=== PATIENT | female | born 1945 | race Caucasian/White ===

== ENCOUNTER 2020-08-12 11:04 | Inpatient (IN) | payer MEDICARE, BC ==
[2020-08-12 12:04] LABS: #Basophils 0.1 thou/uL (0.0-0.2); #Eosinphils 0.1 thou/uL (0.0-0.7); #Lymphocytes 2.4 thou/uL (1.20-3.40); #Monocytes 0.6 thou/uL (0.11-0.59); #Neutrophils 6.4 thou/uL (1.40-6.50); %Basophils 1.5 % (0.0-1.0); %Eosinophils 0.9 % (0.0-10.0); %Lymphocytes 25.2 % (21.0-51.0); %Monocytes 6.6 % (0.0-10.0); %Neutrophils 65.8 % (42.0-75.0); Hemoglobin 11.6 g/dL (12.0-16.0); Mean Corpuscular HGB CONC 34.4 g/dL (32.0-36.0); Mean Corpuscular Hemoglobin 33.2 pg (27.0-31.0); Mean Corpuscular Volume 96.5 fL (78.0-98.0); Mean Platelet Volume 7.3 fL (7.4-10.4); Platelet Count 234 thou/uL (130-400); RBC Distribution Width 11.7 % (11.5-14.5); Red Blood Cell (RBC) Count 3.51 mill/uL (4.20-5.40); White Blood Cell (WBC) Count 9.7 thou/uL (4.8-10.8)
[2020-08-12 12:33] LABS: ALT (SGPT) 15 U/L (8-55); AST (SGOT) 22 U/L (5-34); Albumin 3.9 g/dL (3.4-4.8); Alkaline Phosphatase 72 U/L (40-110); Anion Gap 16 mmol/L (10-20); BUN (Urea Nitrogen) 19 mg/dL (9.8-20.1); Bilirubin, Total 0.5 mg/dL (0.2-1.2); Calc. Creatinine Clearance 0 mL/min (70-130); Calcium 8.8 mg/dL (7.8-10.44); Carbon Dioxide 22 mmol/L (23-31); Chloride 103 mmol/L (98-107); Glucose 115 mg/dL (83-110); Potassium 4.2 mmol/L (3.5-5.1); Protein, Total 6.9 g/dL (6.0-8.3); Sodium 137 mmol/L (136-145)
--- NOTE | 2020-08-12 12:39 | ULT ---
US Gallbladder RUQ History: Epigastric pain Comparison: None. Findings: Real-time grayscale and color evaluation right upper quadrant of the abdomen was performed. Visualized portion aorta, IVC and pancreas unremarkable. Hepatic echotexture is normal. No mass. Liver measures 12.3 cm in length. Portal vein is patent with antegrade flow. Gallbladder is distended without wall thickening or pericholecystic fluid. No cholelithiasis. The right kidney measures 8.1 x 4.3 x 4.1 cm without mass, hydronephrosis or abnormal calcifications. Sonography Denis sign is negative. Common bile duct is normal measuring less than 3 mm. Impression: Distended gallbladder without cholelithiasis or cholecystitis.
[2020-08-12 12:46] LABS: Lipase 1566 U/L (8-78)
[2020-08-12] MEDS ORDERED: Morphine 4 MG/ML VIAL ONE ×2 (12:57→15:06)
[2020-08-12] MEDS ORDERED: Ondansetron PF 4 MG/2 ML Vial ONE ×2 (12:57→15:16)
--- NOTE | 2020-08-12 15:56 | HP ---
PRIMARY CARE PHYSICIAN: Dr. Navdeep Pike. CHIEF COMPLAINT: Abdominal pain and presyncopal episode. HISTORY OF PRESENT ILLNESS: This is a 74-year-old white female with a past medical history only significant for high blood pressure well controlled with a small dose of lisinopril. She reports that about a month ago, she started having some intermittent midepigastric burning pain. She thought it was reflux and then this morning, she had a breakfast supplement type shake and then went shopping. While she was at the store, she had onset of severe midepigastric burning pain and then, she started to get a little bit nauseated and very, very lightheaded and dizzy like she was going to pass out. She did have to sit down in the store and then eventually came into the emergency room. In the ER, she was found to have a very tender mid epigastric region. Her vital signs were stable. She was given Zofran, morphine, and a liter of fluid and is not feeling lightheaded at all right now when she lays down. When she sits up, she still feels a little lightheaded. The patient had a lab tests, which revealed elevated lipase of 1500. The rest for her liver tests were normal and she had normal white cell count. She did have an ultrasound done in the emergency room, which showed a dilated gallbladder, but no dilation of the ducts and no evidence of stones or infection. REVIEW OF SYSTEMS: CONSTITUTIONAL: No fevers. No chills. No significant weight changes. EYES: No double vision or blurred vision. ENT: She has chronic nasal congestion from allergies, no changes. No sore throat. CARDIOVASCULAR: No chest pain. No palpitations or racing heart. PULMONARY: No coughing, wheezing, or shortness of breath. GASTROINTESTINAL: See HPI. No vomiting. No diarrhea or constipation. GENITOURINARY: No dysuria or hematuria. MUSCULOSKELETAL: No muscle aches or joint pain. SKIN: No rashes or lesions noted. NEUROLOGIC: No numbness, tingling, or focal weakness. PAST MEDICAL HISTORY: Hypertension. PAST SURGICAL HISTORY: 1. Partial hysterectomy. 2. Bladder lift. SOCIAL HISTORY: No tobacco, alcohol, or illicit drug use. She is . She is a full code. Should she be incapacitated, her would be her medical decision maker, his name is Mahendra Vegas. The patient also has two daughters, they work at [employer] as nurses, one in pediatrics and one in the day stay. FAMILY HISTORY: Father had pancreatic cancer. ALLERGIES: NO KNOWN DRUG ALLERGIES. CURRENT MEDICATIONS: 1. Lisinopril, unknown dose daily. 2. Estrogen daily. 3. Ginkgo biloba supplement and other [id number]-vjavjpd supplements. No new medications. PHYSICAL EXAMINATION: VITAL SIGNS: Blood pressure 135/66, pulse 94, respirations 18, temperature 98.2, and O2 saturation 99% on room air. GENERAL: This is a well-developed, elderly white female, in no acute distress. Does not appear to be in any acute pain at this time. HEENT: Pupils equal, round, and reactive to light. Oropharynx clear without lesions, erythema, or exudate. NECK: Supple. No lymphadenopathy. No thyroid nodules or enlargement. No JVD. HEART: Regular rate and rhythm. No murmurs, rubs, or gallops. LUNGS: Clear to auscultation bilaterally. No wheezes, crackles, or rhonchi. ABDOMEN: Soft, mildly tenderness to palpation in the midepigastric region. She stated it was very tender previously before the morphine was given. No guarding or rebound tenderness. No hepatosplenomegaly or other masses. She does have normoactive bowel sounds. EXTREMITIES: No clubbing, cyanosis, or edema. SKIN: No rashes or other lesions noted. NEUROLOGIC: The patient moves all extremities equally. No facial droop. PSYCHIATRIC: Alert and orient x3. Normal mood and affect. LABORATORY DATA: CBC with hemoglobin of 11.6, hematocrit of 33.9 with a normal MCV, the rest is normal. Complete metabolic panel is notable for carbon dioxide of 22 and glucose of 115, the rest was normal. Lipase was elevated at 1566. Troponin was negative x1. We do not yet have a lactic acid. Abdominal ultrasound shows normal liver, normal bile ducts, normal size common bile duct, normal kidney, just distended gallbladder without cholelithiasis or cholecystitis. ASSESSMENT AND PLAN: 1. Acute pancreatitis of uncertain etiology. It is possible the patient had a small stone that she passed without any other gallstones. However, given her family history of pancreatic cancer and her symptoms starting to present slowly over a month, I am suspicious of the possibility of her having cancer as well. I did talk to Dr. Orlando and he will evaluate the patient. He recommended avoiding CT scan at this point, though we can get imaging later should it be necessary. For right now, we will hydrate aggressively. We will continue her on 150 mL of normal saline per hour done in the emergency room when she gets the floor . We will convert to a D5 half-normal saline at 100 mL/h and one can check orthostatic vital signs and lactic acid to make sure she does not need further bolusing of fluids. Her vital signs are stable right now. She has no elevated white count and no liver function test abnormalities. She may end up needing an endoscopic ultrasound of her pancreas or other imaging to evaluate for further for etiology. We will defer to Dr. Orlando for decisions on those for now. We will keep the patient n.p.o. and give Zofran and morphine IV as needed for pain and nausea. Can reassess the lipase in the morning and her symptoms to see if she might be able to start taking some clear fluids. 2. Hypertension, currently well controlled. We will hold lisinopril for now one the patient is well resuscitated. If her blood pressure is elevated, we can resume the lisinopril at that time. 3. Deep venous thrombosis prophylaxis, put the patient on Lovenox subcu and DVT and SCDs while in bed. 4. Gastrointestinal prophylaxis. The patient on Pepcid twice a day. 5. Code status. The patient is a full code. Should she be incapacitated, her Mahendra Vegas will be her medical decision. Job ID: [id number]
[2020-08-12] MEDS ORDERED: Acetaminophen 325 MG TAB PO PRN (17:00)
[2020-08-12] MEDS ORDERED: Guaifenesin DM 100-10/5 ML UDCUP PO PRN (17:00)
[2020-08-12] MEDS ORDERED: Senokot S 8.6-50 MG TAB PO PRN (17:00)
[2020-08-12] MEDS ORDERED: Acetaminophen 650 MG Suppository PR PRN (17:00)
[2020-08-12] MEDS ORDERED: Ondansetron ODT 4 MG TAB PO PRN (17:00)
[2020-08-12] MEDS ORDERED: HYDROcodone/Acetaminophen 5/325 mg Tablet PO PRN ×2 (17:00)
[2020-08-12] MEDS ORDERED: Dextrose 5 %-0.45 % NaCl 1,000 ML IV SCH (19:45)
[2020-08-12] MEDS: Ondansetron PF 4 MG/2 ML Vial IVP PRN (19:55)
[2020-08-12] MEDS ORDERED: Famotidine/PF 20 mg/2ml Vial SLOW IVP SCH (21:00)
[2020-08-12] MEDS: Dextrose 5 %-0.45 % NaCl 1,000 ML IV SCH (21:50)
[2020-08-12] MEDS: Lisinopril 5 MG TAB PO SCH (21:51)
[2020-08-13] MEDS: Morphine 4 MG/ML VIAL SLOW IVP PRN ×2 (00:25→20:01)
--- NOTE | 2020-08-13 02:51 | CON ---
DATE OF CONSULTATION: 08/12/2020 REASON FOR CONSULTATION: Pancreatitis. HISTORY OF PRESENT ILLNESS: Ms. Vegas is a 74-year-old female who sees Dr. Navdeep Pike in the outpatient setting. She was in her normal state of health when actually felt good this morning, she woke up and went to [employer]. About 10:30 while she was there, she started having some discomfort in her epigastrium like indigestion, but this kept getting worse, then she felt like she was going to pass out, became somewhat nauseated. They summoned EMS. She was noted to have an elevated lipase over 1000. Normal CBC except for mild anemia and normal liver function tests. Ultrasound did show distended gallbladder. Her renal function was normal. Presently, after receiving some IV fluids, she is feeling a little bit better. In the emergency room, she received Zofran, morphine, a liter bolus and 150 mL of normal saline. It is unclear what her bolus was on the floor here. PAST MEDICAL HISTORY: 1. She has little bit reflux for which she takes [id number] Prilosec. 2. Hypertension for which she is taking lisinopril for several years. PAST SURGICAL HISTORY: Notable for a partial hysterectomy and bladder lift. She has not had a previous colonoscopy. REVIEW OF SYSTEMS: Negative for dysphagia, odynophagia, melena, hematochezia, fever, shortness of breath, dyspnea on exertion, weight loss, anorexia or early satiety, change in bowel function, rashes, myalgias, arthralgias, or diabetes. SOCIAL HISTORY: Denies alcohol drugs, or tobacco. She is . FAMILY HISTORY: Father had pancreatic cancer in his late 60s. ALLERGIES: NONE KNOWN. MEDICATIONS: 1. Lisinopril .. 2. Estrogen. 3. Ginkgo biloba [id number] and supplement with a hospitalist notes, but she denied that to me. 4. She takes Prilosec sometimes too. PHYSICAL EXAMINATION: VITAL SIGNS: Temperature is 98. Pulse 115, it was at admission at 1600. Blood pressure 136/64, respirations 16. GENERAL: She is resting in bed. She is in no distress. HEENT: Oropharynx is moist. She is nonicteric. NECK: Supple without nodes. There is no supraclavicular adenopathy. LUNGS: Clear. HEART: Regular rate and rhythm without clicks or murmurs. ABDOMEN: Soft. Mild tender in epigastrium. No rebound or guarding. EXTREMITIES: No clubbing, cyanosis, or edema. LABORATORY DATA: White count was 9.7, admission hemoglobin 11.6, platelet count 234. Sodium 137, potassium 4.2, BUN and creatinine are 19 and 0.6, glucose 115, bilirubin 0.5, AST and ALT are 22 and 15, alkaline phosphatase 72. Troponin less than 0.01. Lipase was 1566. Triglycerides are 255. Lactic acid is 1.6. IMAGING: Ultrasound just revealed a distended gallbladder. ASSESSMENT: New onset pancreatitis of unclear etiology. She did take NSAIDs up until about a month ago, ulcer disease be considered, but you know she has not had any signs of bleeding. She has been taking H2 blockers at home. Gallbladder source to be considered, she had a distended gallbladder. If there is no evidence of gallstones and she has normal liver function test, we should go and get the biliary pancreatitis. I am going to ask her and get about supplements that she was taking, ginkgo biloba is one of the supplement, sometimes those can cause pancreatitis, pancreatic malignancy, she is concerned about her family history, but she has no history of recent abdominal pain. This is very abrupt onset. Differential diagnosis includes acute pancreatitis, ulcer disease, pancreatic neoplasia is less likely. Etiologies would be idiopathic, medication supplements, or possibly her JOSE RAMON inhibitor, or it would be unlikely several years after starting it getting angioedema of the pancreas that would still be possible. RECOMMENDATIONS: Would increase IV fluids to 150 mL an hour. Recheck all labs in the morning. CT scan abdomen in the morning. Job ID: [id number]
[2020-08-13] MEDS: Dextrose 5 %-0.45 % NaCl 1,000 ML IV SCH ×4 (03:29→23:43)
[2020-08-13 04:50] LABS: SARS-CoV-2 MS2 Positive; SARS-CoV-2 N Gene Negative; SARS-CoV-2 S Gene Negative; SARS-CoV-2 by NAA Not Detected (NotDetected); SARS-CoV-2 orf1ab Negative
[2020-08-13 05:52] LABS: #Basophils 0.1 thou/uL (0.0-0.2); #Eosinphils 0.1 thou/uL (0.0-0.7); #Monocytes 0.9 thou/uL (0.11-0.59); %Basophils 0.6 % (0.0-1.0); %Lymphocytes 29.4 % (21.0-51.0); %Monocytes 8.8 % (0.0-10.0); %Neutrophils 60.2 % (42.0-75.0); Hemoglobin 9.8 g/dL (12.0-16.0); Mean Corpuscular HGB CONC 34.1 g/dL (32.0-36.0); Mean Corpuscular Hemoglobin 32.7 pg (27.0-31.0); Mean Corpuscular Volume 96.1 fL (78.0-98.0); Mean Platelet Volume 7.1 fL (7.4-10.4); Platelet Count 209 thou/uL (130-400); RBC Distribution Width 11.8 % (11.5-14.5); Red Blood Cell (RBC) Count 2.99 mill/uL (4.20-5.40)
[2020-08-13 06:02] LABS: ALT (SGPT) 14 U/L (8-55); AST (SGOT) 14 U/L (5-34); Alkaline Phosphatase 58 U/L (40-110); Bilirubin, Direct 0.1 mg/dL (0.1-0.3); Bilirubin, Total 0.2 mg/dL (0.2-1.2); Protein, Total 5.3 g/dL (6.0-8.3)
[2020-08-13 06:05] LABS: Anion Gap 10 mmol/L (10-20); BUN (Urea Nitrogen) 15 mg/dL (9.8-20.1); Calc. Creatinine Clearance 54 mL/min (70-130); Calcium 7.2 mg/dL (7.8-10.44); Carbon Dioxide 22 mmol/L (23-31); Chloride 104 mmol/L (98-107); Glucose 129 mg/dL (83-110); Lipase 293 U/L (8-78); Potassium 3.7 mmol/L (3.5-5.1); Sodium 132 mmol/L (136-145)
[2020-08-13] MEDS: Pantoprazole 40 MG VIAL IVP SCH (07:42)
[2020-08-13] MEDS: Ondansetron PF 4 MG/2 ML Vial IVP PRN ×4 (07:42→23:43)
[2020-08-13] MEDS ORDERED: Enoxaparin Sodium 40 MG/0.4 ML SYRINGE SC SCH (09:00)
[2020-08-13] MEDS ORDERED: Iopamidol 370 76% 100 ML VIAL ONE (09:55)
--- NOTE | 2020-08-13 10:06 | CT ---
CLINICAL HISTORY: Upper abdominal pain with nausea and vomiting. TECHNIQUE: Multiple contiguous axial images were obtained and a CT of the abdomen without and with IV contrast. Postcontrast images were obtained in the arterial and portal venous phases. Coronal and sagittal reformats were performed. Oral contrast was administered. COMPARISON: Abdominal ultrasound 08/12/2020 FINDINGS: Liver: Size: Normal. Contour: Smooth. Mass: There is a 9 mm area of enhancement adjacent to the falciform ligament in the left lobe of live r seen only on the arterial phase which could represent a small area of FERNANDA. Gallbladder and biliary system: Distended with surrounding fluid. No CT evident gallstones. No biliar y ductal dilatation. Spleen: Normal. Pancreas: Normal. No enhancing masses. No pancreatic duct dilatation. Kidneys: Normal. Adrenal glands: Normal. GI tract: Scattered diverticula in the colon. Abdominal aorta and its major branches: Atherosclerotic calcifications. No aneurysm. Peritoneum/retroperitoneum: A small amount of free fluid and stranding changes are seen in the right upper quadrant of the abdomen between the gallbladder and the hepatic flexure of the colon. No free air is seen. No ascites. No adenopathy. Body wall and musculoskeletal: Degenerative changes in the spine. Visualized lower thorax: There is a large hiatal hernia. No pulmonary parenchymal mass or pleural effusion. IMPRESSION: 1. The gallbladder is distended with surrounding inflammatory changes and fluid concerning for cholec ystitis. This could be consistent with acalculous cholecystitis given the lack of gallstones on ultrasound. A nuclear medicine hepatobiliary scan is recommended to evaluate for gallbladder filling. 2. Diverticulosis 3. Large hiatal hernia 4. Likely small FERNANDA in the left lobe of the liver.
[2020-08-13] MEDS ORDERED: Promethazine 25 MG TAB PO PRN (10:50)
[2020-08-13] MEDS ORDERED: Promethazine HCl 25 MG in Sodium Chloride 0.9% 50 ML IVPB PRN (10:50)
[2020-08-13] MEDS ORDERED: Meclizine HCl 25 MG TAB PO PRN (14:59)
[2020-08-13] MEDS ORDERED: Sodium Chloride 0.9% 10 ML ONE (17:24)
[2020-08-13] MEDS: Lisinopril 5 MG TAB PO SCH (20:02)
[2020-08-13] MEDS ORDERED: FLU VACC QS2020-21(65YR UP)/PF 240 MCG/0.7 ML SYRINGE IM ONE (21:00)
--- NOTE | 2020-08-13 22:14 | PRG ---
DATE OF SERVICE: 08/13/2020 SUBJECTIVE: Ms. Vegsa's abdominal pain is pretty much resolved today. She feels much better. OBJECTIVE: VITAL SIGNS: Temperature 99.0, pulse 96, and blood pressure 138/65. GENERAL: She is in no acute distress. Alert and oriented x3. LUNGS: Clear to auscultation bilaterally. HEART: Regular rate and rhythm without murmur. ABDOMEN: Soft. Minimal tenderness in the epigastric region without guarding. Bowel sounds are present. EXTREMITIES: No lower extremity edema. LABORATORY DATA: White blood cell count 10.0, hemoglobin 9.8, platelets 209. LFTs are normal. Lipase is decreased from 1566 to 293. Triglycerides are 255. IMPRESSION: Acute pancreatitis. Idiopathic at this point as her liver tests have been normal and there are no stones by ultrasound. Her triglycerides are normal. Negative alcohol history. CT scan did show distended gallbladder with some fluid around it, but this might just be due to the pancreatitis. She had no evidence of a mass in the pancreas by CT scan. In fact, the pancreas appeared normal by CT this morning. RECOMMENDATIONS: 1. We will follow through with a HIDA scan tomorrow. If her gallbladder significantly abnormal, then she probably had to have this taken out as a biliary source for the pancreatitis is still possible. 2. If the HIDA scan is normal, then we can advance her diet and consider outpatient endoscopic ultrasound referral. Job ID: [id number]
[2020-08-13] MEDS: Piperacillin/Tazobactam 3.375 GM in Sodium Chloride 0.9% 100 ML IVPB SCH (23:42)
[2020-08-14] MEDS: Piperacillin/Tazobactam 3.375 GM in Sodium Chloride 0.9% 100 ML IVPB SCH ×2 (05:48→11:32)
[2020-08-14 06:38] LABS: ALT (SGPT) 13 U/L (8-55); AST (SGOT) 17 U/L (5-34); Albumin 3.1 g/dL (3.4-4.8); Alkaline Phosphatase 55 U/L (40-110); Anion Gap 10 mmol/L (10-20); BUN (Urea Nitrogen) 8 mg/dL (9.8-20.1); Bilirubin, Total 0.3 mg/dL (0.2-1.2); Calc. Creatinine Clearance 52 mL/min (70-130); Calcium 7.4 mg/dL (7.8-10.44); Carbon Dioxide 21 mmol/L (23-31); Chloride 108 mmol/L (98-107); Globulin 2.5 g/dL (2.4-3.5); Glucose 97 mg/dL (83-110); Lipase 36 U/L (8-78); Magnesium 1.8 mg/dL (1.6-2.6); Phosphorus 2.4 mg/dL (2.3-4.7); Potassium 3.6 mmol/L (3.5-5.1); Protein, Total 5.6 g/dL (6.0-8.3); Sodium 135 mmol/L (136-145)
[2020-08-14] MEDS: Morphine 4 MG/ML VIAL SLOW IVP PRN (07:10)
[2020-08-14 08:08] LABS: #Eosinphils 0.2 thou/uL (0.0-0.7); #Lymphocytes 2.3 thou/uL (1.20-3.40); #Monocytes 0.8 thou/uL (0.11-0.59); #Neutrophils 5.8 thou/uL (1.40-6.50); %Basophils 0.4 % (0.0-1.0); %Eosinophils 1.7 % (0.0-10.0); %Lymphocytes 24.8 % (21.0-51.0); %Monocytes 8.9 % (0.0-10.0); %Neutrophils 64.2 % (42.0-75.0); Hemoglobin 10.3 g/dL (12.0-16.0); Mean Corpuscular HGB CONC 33.7 g/dL (32.0-36.0); Mean Corpuscular Hemoglobin 33.7 pg (27.0-31.0); Mean Corpuscular Volume 99.9 fL (78.0-98.0); Mean Platelet Volume 7.5 fL (7.4-10.4); Platelet Count 193 thou/uL (130-400); Red Blood Cell (RBC) Count 3.04 mill/uL (4.20-5.40); White Blood Cell (WBC) Count 9.1 thou/uL (4.8-10.8)
--- NOTE | 2020-08-14 08:19 | PDOC.HOSPP ---
- Subjective Encounter Date: 08/13/20 Encounter Time: 18:00 Subjective: Patient seen and examined for acute pancreatitis. Had significant nausea earlier that is slowly improving. Did not do well with Phenergan. Phenergan added to allergies. - Objective Vital Signs & Weight: Vital Signs (12 hours) Temp Pulse Resp BP BP Pulse Ox 08/14/20 08:02 97.8 F 94 20 130/63 95 08/14/20 05:50 92 16 123/69 95 08/13/20 23:43 98.9 F 90 18 128/60 95 Weight Weight 119 lb 0.794 oz I&O: 08/13/20 08/14/20 08/15/20 06:59 06:59 06:59 Intake Total 1056 1441 Output Total 400 900 Balance 656 541 Result Diagrams: 08/14/20 07:51 08/14/20 06:07 Additional Labs: Abnormal Lab Results - Last 48 hrs 08/12/20 11:43: RBC 3.51 L, Hgb 11.6 L, Hct 33.9 L, MCH 33.2 H, MPV 7.3 L, Basophils % 1.5 H, Monocytes # 0.6 H 08/12/20 11:43: Carbon Dioxide 22 L, Lipase 1566 H 08/12/20 11:43: Triglycerides 255 H 08/13/20 05:31: Sodium 132 L, Carbon Dioxide 22 L, Calcium 7.2 L, Lipase 293 H 08/13/20 05:31: RBC 2.99 L, Hgb 9.8 L, Hct 28.7 L, MCH 32.7 H, MPV 7.1 L, Monocytes # 0.9 H 08/13/20 05:31: Serum Total Protein 5.3 L, Albumin 3.0 L 08/14/20 06:07: Sodium 135 L, Chloride 108 H, Carbon Dioxide 21 L, BUN 8 L, Calcium 7.4 L, Serum Total Protein 5.6 L, Albumin 3.1 L 08/14/20 07:51: RBC 3.04 L, Hgb 10.3 L, Hct 30.4 L, MCV 99.9 H, MCH 33.7 H, Monocytes # 0.8 H Radiology Reviewed by me: Yes (CT abdomen reviewed) Hospitalist ROS - Review of Systems Cardiovascular: denies: chest pain, palpitations, orthopnea, paroxysmal noc. dyspnea, edema, light headedness, other Gastrointestinal: denies: nausea, vomiting, abdominal pain, diarrhea, constipation, melena, hematochezia, other - Medication Medications: Active Medications Generic Name Dose Route Start Last Admin Trade Name Freq PRN Reason Stop Dose Admin Enoxaparin Sodium 40 mg 08/13/20 09:00 08/14/20 01:26 Enoxaparin Sodium 40 Mg/0.4 Ml Syringe SC Not Given 0900 ALPESH Dextrose/Sodium Chloride 1,000 mls @ 150 mls/hr 08/12/20 21:00 08/13/20 23:43 D5 1/2 Ns IV 1,000 mls .[id number] ALPESH Administration Piperacillin Sod/Tazobactam 100 mls @ 200 mls/hr 08/13/20 23:59 08/14/20 05:48 Sod 3.375 gm/ Sodium Chloride IVPB 100 mls Q6HR ALPESH Administration Lisinopril 5 mg 08/12/20 21:00 08/13/20 20:02 Lisinopril 5 Mg Tab PO 5 mg HS ALPESH Administration Meclizine HCl 25 mg 08/13/20 14:59 08/13/20 15:25 Meclizine Hcl 25 Mg Tab PO 25 mg Q8H PRN Administration Dizziness Morphine Sulfate 4 mg 08/12/20 17:00 08/14/20 07:10 Morphine 4 Mg/Ml Vial SLOW IVP 4 mg Q3H PRN Administration Moderate to Severe Pain (6-10) Ondansetron HCl 4 mg 08/12/20 17:00 08/13/20 23:43 Ondansetron Pf 4 Mg/2 Ml Vial IVP 4 mg Q6H PRN Administration Nausea/Vomiting Pantoprazole Sodium 40 mg 08/13/20 09:00 08/13/20 07:42 Pantoprazole 40 Mg Vial IVP 40 mg DAILY ALPESH Administration - Exam General Appearance: NAD Neck: supple, no JVD Heart: RRR, no gallops Respiratory: no wheezes, no ronchi Gastrointestinal: soft, non-tender, normal bowel sounds Extremities: no cyanosis Hosp A/P - Plan DVT proph w/SCDs Acute pancreatitis Abnormal gallbladder on the CTquestionable acute cholecystitis Hypertension Hyponatremia CKD stage II Dyslipidemia Plan: Continue IV fluids. Add empiric antibiotics due to abnormal gallbladder on the CT. Continue DVT prophylaxis. Continue PPI.
[2020-08-14] MEDS ORDERED: Electrolyte Replacement Protocol 1 EACH FS SCH (08:30)
[2020-08-14] MEDS: Dextrose 5 %-0.45 % NaCl 1,000 ML IV SCH ×2 (08:35→14:00)
[2020-08-14] MEDS: Pantoprazole 40 MG VIAL IVP SCH (08:35)
[2020-08-14] MEDS ORDERED: Magnesium 2 GM/50 ML 2 GM in Premix Bag 1 BAG IVPB SCH (09:00)
--- NOTE | 2020-08-14 10:32 | PRG ---
DATE OF SERVICE: 08/14/2020 SUBJECTIVE: Ms. Vegas says she is feeling very well this morning. No nausea or vomiting. She is tolerating Ensure without difficulty. There is no abdominal pain. She is awaiting her HIDA scan. LFTs remain normal and lipase has normalized. OBJECTIVE: VITAL SIGNS: Temperature 97.8, pulse 94, blood pressure 130/63, and 95% oxygen saturation on room air. GENERAL: In no acute distress. HEART: Regular rate and rhythm. LUNGS: Clear to auscultation bilaterally. ABDOMEN: Soft, nontender to palpation. EXTREMITIES: No peripheral edema. LABORATORY STUDIES: WBC is 9.1, hemoglobin 10.3, platelets 193. Sodium 135, potassium 3.6, BUN 8, creatinine 0.79, total bilirubin only 0.3, alkaline phosphatase 55, AST 17, ALT 13. Lipase 36, down from 293 yesterday. ASSESSMENT AND PLAN: 1. Acute pancreatitis, idiopathic, clinically resolved. 2. Abnormal CT scan showing distended gallbladder with some pericholecystic fluid, unclear if this is just due to the pancreatitis or possible biliary etiology for her pancreatitis. Awaiting HIDA scan. If the HIDA scan is normal, then I think the patient could potentially be discharged from the hospital later today with advanced diet. If the HIDA scan is significantly abnormal, then would recommend surgical consultation for consideration of cholecystectomy. Job ID: [id number]
[2020-08-14 11:58] VITALS: BP 120/58; TEMP 98.1
[2020-08-14] MEDS ORDERED: Sodium Chloride 0.9% 10 ML ONE (13:56)
[2020-08-14] MEDS: Ondansetron PF 4 MG/2 ML Vial IVP PRN (13:59)
--- NOTE | 2020-08-14 14:29 | NM ---
HEPATOBILIARY SCAN: 08/14/20 INDICATIONS: Pancreatitis. Abnormal CT. CT showed distended abnormal appearing gallbladder. The patient was given 4.7 millicuries of technetium labeled Mebrofenin IV. Ejection fraction was not obtained. Pretreatment with CCK was not performed. FINDINGS: Initial images show normal liver activity. The gallbladder begins to visualize by ten minutes. Bile d uct activity is confirmed and activity in the intestinal tract is confirmed. IMPRESSION: Normal visualization of the gallbladder. POS: AGW
[2020-08-14] MEDS ORDERED: Enoxaparin Sodium 40 MG/0.4 ML SYRINGE SC SCH (21:00)
--- NOTE | 2020-08-15 12:46 | PDOC.DS.DS ---
Provider - Provider Date of Admission: 08/12/20 16:53 Date of Discharge: 08/14/20 Admitting Provider: Jimmy Schilling DO Consultations: Gastroentrology Primary Care Physician: JEN TEJEDA MD Course - Hospital Course Hospital Course: Patient is a 74-year-old female with hypertension presented to the emergency room with abdominal pain with near syncope. Her work-up in the emergency room was consistent with acute pancreatitis with a lipase of 1566. Please refer to the history and physical for further details. The patient was admitted to the medical floor with the above diagnosis. She was kept n.p.o. and was started on IV fluids. Right upper quadrant ultrasound showed distended gallbladder without cholelithiasis or cholecystitis. Patient was evaluated by gastroenterology. Next morning she underwent a CT scan of the abdomen that showed distention of the gallbladder with surrounding inflammatory changes and fluid concerning for cholecystitis. For this reason HIDA scan was done which showed normal visualization of the gallbladder. Lipase gradually improved to 36 she has been cleared by gastroenterology for discharge on the day of discharge. She was started on empiric antibiotics after abnormal CT scan which was discontinued at discharge. Final diagnosis: Acute pancreatitis Abnormal gallbladder on the CTquestionable acute cholecystitis Hypertension Hyponatremia CKD stage II Dyslipidemia Resuscitation Status: 08/12/20 14:40 Resuscitation Status Routine Resuscitation Status: FULL: Full Resuscitation Discussed with: Patient - Labs Lab Results: 08/14/20 07:51 08/14/20 06:07 Abnormal Lab Results - Last 48 hrs 08/14/20 06:07: Sodium 135 L, Chloride 108 H, Carbon Dioxide 21 L, BUN 8 L, Calcium 7.4 L, Serum Total Protein 5.6 L, Albumin 3.1 L 08/14/20 07:51: RBC 3.04 L, Hgb 10.3 L, Hct 30.4 L, MCV 99.9 H, MCH 33.7 H, Monocytes # 0.8 H Laboratory Tests 08/12/20 08/12/20 08/12/20 11:43 11:43 18:40 Triglycerides 255 H Lipase 1566 H SARS-CoV-2 (PCR) Not Detected 08/13/20 05:31 Triglycerides Lipase 293 H SARS-CoV-2 (PCR) - Physical Exam Vitals: Weight Weight 119 lb 0.794 oz Physical Exam: The patient was seen and examined on the day of discharge. Plan - Discharge Medications Home Medications: Medication Instructions Recorded Confirmed Type Lisinopril [Zestril] 1 tab PO HS 08/12/20 08/12/20 History Allergies: promethazine [From Phenergan] Allergy (Verified 08/13/20 15:16) Sulfa (Sulfonamide Antibiotics) Allergy (Verified 08/12/20 22:48) - Follow up Plan Referrals: John Lawrence MD [Active] - 2-3 Weeks JEN TEJEDA MD [Primary Care Provider] - 7 Days Disposition: HOME Quality - Care Measures CORE MEASURES:: N/A
--- NOTE | 2020-08-16 15:21 | EKG ---
Test Reason : Blood Pressure : / mmHG Vent. Rate : 085 BPM Atrial Rate : 085 BPM P-R Int : 154 ms QRS Dur : 076 ms QT Int : 370 ms P-R-T Axes : 049 019 038 degrees QTc Int : 440 ms Normal sinus rhythm Cannot rule out Anterior infarct , age undetermined Abnormal ECG Confirmed by LORRAINE NICKERSON DO ([id number]), non linear editor ANNA HORN ([id number]) on 08/16/2020 3:21:11 PM Referred By: Confirmed By:LORRAINE NICKERSON DO
== END 2020-08-14 15:44 | disposition home or self-care (01) | DRG 439 ==
LOC: ERS 11:04 → 3SE 16:53
PROVIDERS: ADMIT Family Medicine; ATTEND Internal Medicine
DX: K85.00 Idiopathic acute pancreatitis without necrosis or infection (principal); E87.1 Hypo-osmolality and hyponatremia; Z20.828 Contact with and (suspected) exposure to other viral communicable diseases; E78.5 Hyperlipidemia, unspecified; N18.2 Chronic kidney disease, stage 2 (mild); I12.9 Hypertensive chronic kidney disease with stage 1 through stage 4 chronic kidney disease, or unspecified chronic kidney disease; Z90.711 Acquired absence of uterus with remaining cervical stump
CPT/HCPCS: 36415; 74170; 76705; 78226; 80048; 80053; 80076; 83605; 83690; 83735; 84100; 84478; 84484; 85025; 87635; 93005; 96374; 96375; 96376; A9537; C9113; J2270; J2405; J2543; J2550; J3475; J3490; Q9967; U0003

== ENCOUNTER 2020-11-17 23:30 | Inpatient (IN) | payer MEDICARE, BC ==
[~2020-11-17 23:30] MED LIST: Iopamidol-370 76% 500 ML 1 ML ONE
[2020-11-18] MEDS ORDERED: Morphine 4 MG/ML VIAL ONE (00:11)
[2020-11-18] MEDS ORDERED: Ondansetron PF 4 MG/2 ML Vial ONE (00:11)
[2020-11-18 00:25] LABS: #Basophils 0.1 thou/uL (0.0-0.2); #Lymphocytes 1.8 thou/uL (1.20-3.40); #Monocytes 0.8 thou/uL (0.11-0.59); #Neutrophils 7.6 thou/uL (1.40-6.50); %Basophils 1.3 % (0.0-1.0); %Eosinophils 0.1 % (0.0-10.0); %Lymphocytes 17.2 % (21.0-51.0); %Monocytes 7.9 % (0.0-10.0); %Neutrophils 73.6 % (42.0-75.0); Hemoglobin 11.8 g/dL (12.0-16.0); Mean Corpuscular HGB CONC 34.4 g/dL (32.0-36.0); Mean Corpuscular Hemoglobin 32.5 pg (27.0-31.0); Mean Corpuscular Volume 94.3 fL (78.0-98.0); Mean Platelet Volume 7.5 fL (7.4-10.4); Platelet Count 260 thou/uL (130-400); RBC Distribution Width 11.7 % (11.5-14.5); Red Blood Cell (RBC) Count 3.63 mill/uL (4.20-5.40); White Blood Cell (WBC) Count 10.3 thou/uL (4.8-10.8)
[2020-11-18 00:55] LABS: ALT (SGPT) 21 U/L (8-55); AST (SGOT) 44 U/L (5-34); Albumin 3.5 g/dL (3.4-4.8); Alkaline Phosphatase 71 U/L (40-110); Anion Gap 15 mmol/L (10-20); BUN (Urea Nitrogen) 15 mg/dL (9.8-20.1); Bilirubin, Total 1.2 mg/dL (0.2-1.2); Calc. Creatinine Clearance 0 mL/min (70-130); Calcium 8.3 mg/dL (7.8-10.44); Carbon Dioxide 20 mmol/L (23-31); Chloride 104 mmol/L (98-107); Glucose 131 mg/dL (83-110); Potassium 3.9 mmol/L (3.5-5.1); Protein, Total 6.5 g/dL (5.8-8.1); Sodium 135 mmol/L (136-145)
[2020-11-18 01:10] LABS: Lipase 4316 U/L (8-78)
[2020-11-18 04:15] VITALS: BMI 20.7
[2020-11-18] MEDS ORDERED: Ondansetron ODT 4 MG TAB SL PRN (04:30)
[2020-11-18] MEDS ORDERED: Dextrose 5 % And 0.9 % NaCl 1,000 ML IV SCH (04:30)
[2020-11-18] MEDS: Morphine 2 MG/ML VIAL SLOW IVP PRN ×4 (04:33→15:30)
[2020-11-18] MEDS: Ondansetron PF 4 MG/2 ML Vial IVP PRN ×2 (04:33→08:30)
[2020-11-18] MEDS ORDERED: Ondansetron PF 4 MG/2 ML Vial IVP PRN (05:18)
[2020-11-18] MEDS ORDERED: hydrALAZINE 20 MG/ML VIAL SLOW IVP PRN (05:22)
[2020-11-18] MEDS: Sodium Chloride 0.9% 1,000 ML IV SCH ×2 (05:55→15:33)
[2020-11-18 07:50] LABS: Hemoglobin A1c 4.8 % (4.0-6.0)
[2020-11-18 08:35] LABS: SARS-CoV-2 PCR by NAA Not Detected (NotDetected)
[2020-11-18] MEDS: Pantoprazole 40 MG VIAL IVP SCH (08:35)
[2020-11-18] MEDS ORDERED: Lactated Ringer's 1,000 ML IV SCH (17:15)
[2020-11-18] MEDS: Acetaminophen 325 MG TAB PO PRN (20:47)
[2020-11-18] MEDS ORDERED: FLU VACC QS2020-21(65YR UP)/PF 240 MCG/0.7 ML SYRINGE IM ONE (21:00)
[2020-11-19] MEDS: Sodium Chloride 0.9% 1,000 ML IV SCH ×2 (02:16→07:17)
[2020-11-19 05:07] LABS: #Basophils 0.1 thou/uL (0.0-0.2); #Eosinphils 0.2 thou/uL (0.0-0.7); #Lymphocytes 1.6 thou/uL (1.20-3.40); #Monocytes 0.9 thou/uL (0.11-0.59); #Neutrophils 8.3 thou/uL (1.40-6.50); %Basophils 0.8 % (0.0-1.0); %Eosinophils 1.4 % (0.0-10.0); %Monocytes 8.4 % (0.0-10.0); %Neutrophils 75.3 % (42.0-75.0); Hemoglobin 9.7 g/dL (12.0-16.0); Mean Corpuscular Hemoglobin 33.1 pg (27.0-31.0); Mean Corpuscular Volume 97.3 fL (78.0-98.0); Mean Platelet Volume 7.6 fL (7.4-10.4); Platelet Count 184 thou/uL (130-400); RBC Distribution Width 11.9 % (11.5-14.5); Red Blood Cell (RBC) Count 2.94 mill/uL (4.20-5.40)
[2020-11-19 05:33] LABS: ALT (SGPT) 12 U/L (8-55); AST (SGOT) 18 U/L (5-34); Albumin 2.9 g/dL (3.4-4.8); Alkaline Phosphatase 55 U/L (40-110); Anion Gap 16 mmol/L (10-20); BUN (Urea Nitrogen) 13 mg/dL (9.8-20.1); Bilirubin, Direct 0.2 mg/dL (0.1-0.3); Bilirubin, Total 0.5 mg/dL (0.2-1.2); Calc. Creatinine Clearance 53 mL/min (70-130); Calcium 7.3 mg/dL (7.8-10.44); Carbon Dioxide 15 mmol/L (23-31); Chloride 110 mmol/L (98-107); Iron 32 ug/dL (50-170); Iron Binding Capacity, Total 249 mcg/dL (265-497); Lipase 214 U/L (8-78); Potassium 3.7 mmol/L (3.5-5.1); Protein, Total 5.4 g/dL (5.8-8.1); Sodium 137 mmol/L (136-145)
[2020-11-19 05:36] LABS: Glucose 50 mg/dL (83-110)
[2020-11-19 05:56] LABS: Ferritin 75.36 ng/mL (10-291)
[2020-11-19] MEDS ORDERED: Dextrose 50% Abboject 50 ML SYRINGE SLOW IVP PRN (06:06)
[2020-11-19] MEDS ORDERED: Dextrose 5% in Water 1,000 ML IV PRN (06:06)
[2020-11-19] MEDS ORDERED: Dextrose 5 %-0.45 % NaCl 1,000 ML IV SCH ×2 (06:15→09:05)
[2020-11-19] MEDS: Pantoprazole 40 MG VIAL IVP SCH (08:34)
[2020-11-19] MEDS: Enoxaparin Sodium 40 MG/0.4 ML SYRINGE SC SCH (08:34)
[2020-11-19] MEDS ORDERED: D5 LR w/20 mEq KCL 1,000 ML IV SCH (09:15)
[2020-11-19] MEDS: Morphine 4 MG/ML VIAL SLOW IVP PRN (16:00)
[2020-11-19] MEDS: Acetaminophen 325 MG TAB PO PRN (21:21)
[2020-11-20 05:33] LABS: #Basophils 0.1 thou/uL (0.0-0.2); #Eosinphils 0.4 thou/uL (0.0-0.7); #Lymphocytes 2.3 thou/uL (1.20-3.40); #Monocytes 0.9 thou/uL (0.11-0.59); #Neutrophils 4.1 thou/uL (1.40-6.50); %Basophils 0.7 % (0.0-1.0); %Eosinophils 5.3 % (0.0-10.0); %Lymphocytes 29.3 % (21.0-51.0); %Neutrophils 52.7 % (42.0-75.0); Hemoglobin 9.1 g/dL (12.0-16.0); Mean Corpuscular HGB CONC 34.5 g/dL (32.0-36.0); Mean Corpuscular Hemoglobin 33.1 pg (27.0-31.0); Mean Corpuscular Volume 96.2 fL (78.0-98.0); Mean Platelet Volume 7.4 fL (7.4-10.4); Platelet Count 173 thou/uL (130-400); RBC Distribution Width 11.8 % (11.5-14.5); Red Blood Cell (RBC) Count 2.74 mill/uL (4.20-5.40); White Blood Cell (WBC) Count 7.7 thou/uL (4.8-10.8)
[2020-11-20 05:58] LABS: Anion Gap 9 mmol/L (10-20); BUN (Urea Nitrogen) 8 mg/dL (9.8-20.1); Calc. Creatinine Clearance 59 mL/min (70-130); Calcium 7.5 mg/dL (7.8-10.44); Carbon Dioxide 21 mmol/L (23-31); Chloride 109 mmol/L (98-107); Glucose 99 mg/dL (83-110); Lipase 54 U/L (8-78); Potassium 3.7 mmol/L (3.5-5.1); Sodium 135 mmol/L (136-145)
[2020-11-20] MEDS: Pantoprazole 40 MG VIAL IVP SCH (09:21)
[2020-11-20] MEDS: Enoxaparin Sodium 40 MG/0.4 ML SYRINGE SC SCH (09:22)
[2020-11-20] MEDS ORDERED: Loperamide HCl 2 MG CAP PO PRN (11:03)
[2020-11-20] MEDS ORDERED: Ondansetron ODT 4 MG TAB PO PRN (11:03)
[2020-11-20] MEDS ORDERED: Bisacodyl 5 MG TAB PO PRN (11:03)
[2020-11-20] MEDS ORDERED: Calcium Carbonate 500 MG ChewTAB PO PRN (11:03)
[2020-11-20] MEDS ORDERED: Senokot S 8.6-50 MG TAB PO PRN (11:03)
[2020-11-20] MEDS ORDERED: GUAIFENESIN SF SOLN 200 MG/10 ML UDCUP PO PRN (11:03)
[2020-11-20] MEDS ORDERED: Cepastat Lozenges 1 LOZ PO PRN (11:03)
[2020-11-20] MEDS ORDERED: Sodium Chloride 0.65% Nasal 44 ML BOT EA NARE PRN (11:03)
[2020-11-20] MEDS ORDERED: Loratadine 10 MG TAB PO PRN (11:03)
[2020-11-20] MEDS ORDERED: Zolpidem Tartrate 5 MG TAB PO PRN (11:03)
[2020-11-20] MEDS ORDERED: Ondansetron ODT 4 MG TAB ONE (11:27)
[2020-11-20] MEDS ORDERED: Lidocaine 1% w/Epinephrine 1:100K 20 ML VIAL ONE (11:45)
[2020-11-20] MEDS ORDERED: Bupivacaine 0.25% HCL 30 ML VIAL ONE (11:45)
[2020-11-20] MEDS ORDERED: Iothalamate Meglumine 60% 50 ML VIAL FS ONE (11:45)
[2020-11-20] MEDS ORDERED: Fentanyl 100 MCG/2 ML VIAL ONE (11:50)
[2020-11-20] MEDS ORDERED: Ondansetron PF 4 MG/2 ML Vial ONE ×2 (12:07→13:43)
[2020-11-20] MEDS ORDERED: Glycopyrrolate 0.2 MG/ML 5 ML SYRINGE ONE (12:07)
[2020-11-20] MEDS ORDERED: Rocuronium Bromide 10 MG/ML (10ML VIAL) ONE (12:07)
[2020-11-20] MEDS ORDERED: PROPOFOL 200 MG/20 ML VIAL ONE (12:07)
[2020-11-20] MEDS ORDERED: Succinylcholine 200 MG/10 ml SYRINGE FS ONE (12:07)
[2020-11-20] MEDS ORDERED: Lidocaine 1% PF 5 ML VIAL ONE (12:07)
[2020-11-20] MEDS ORDERED: Metoclopramide HCl 10 MG/2 ML VIAL ONE ×2 (13:54→13:55)
[2020-11-20] MEDS ORDERED: Metoclopramide HCl 10 MG TAB PO SCH (15:15)
[2020-11-20] MEDS: Metoclopramide HCl 10 MG TAB PO SCH ×2 (17:13→20:55)
[2020-11-20] MEDS: Morphine 4 MG/ML VIAL SLOW IVP PRN ×2 (17:44→22:07)
[2020-11-21] MEDS: Metoclopramide HCl 10 MG TAB PO SCH ×2 (06:17→12:14)
[2020-11-21] MEDS: HYDROcodone/Acetaminophen 5/325 mg Tablet PO PRN ×2 (06:19→12:16)
[2020-11-21 06:21] LABS: #Eosinphils 0.2 thou/uL (0.0-0.7); #Lymphocytes 2.4 thou/uL (1.20-3.40); #Monocytes 1.1 thou/uL (0.11-0.59); #Neutrophils 6.2 thou/uL (1.40-6.50); %Basophils 0.3 % (0.0-1.0); %Eosinophils 2.1 % (0.0-10.0); %Lymphocytes 24.5 % (21.0-51.0); %Monocytes 11.3 % (0.0-10.0); %Neutrophils 61.8 % (42.0-75.0); Hemoglobin 10.3 g/dL (12.0-16.0); Mean Corpuscular HGB CONC 32.9 g/dL (32.0-36.0); Mean Corpuscular Hemoglobin 32.1 pg (27.0-31.0); Mean Corpuscular Volume 97.5 fL (78.0-98.0); Platelet Count 227 thou/uL (130-400)
[2020-11-21 06:50] LABS: ALT (SGPT) 18 U/L (8-55); AST (SGOT) 28 U/L (5-34); Alkaline Phosphatase 67 U/L (40-110); Bilirubin, Direct 0.2 mg/dL (0.1-0.3); Bilirubin, Total 0.3 mg/dL (0.2-1.2); Protein, Total 5.8 g/dL (5.8-8.1)
[2020-11-21 06:53] LABS: Anion Gap 13 mmol/L (10-20); BUN (Urea Nitrogen) 7 mg/dL (9.8-20.1); Calc. Creatinine Clearance 52 mL/min (70-130); Calcium 7.9 mg/dL (7.8-10.44); Carbon Dioxide 21 mmol/L (23-31); Chloride 107 mmol/L (98-107); Glucose 89 mg/dL (83-110); Lipase 34 U/L (8-78); Sodium 137 mmol/L (136-145)
[2020-11-21] MEDS: Pantoprazole 40 MG VIAL IVP SCH (09:52)
[2020-11-21] MEDS: Enoxaparin Sodium 40 MG/0.4 ML SYRINGE SC SCH (09:53)
[2020-11-21 11:23] VITALS: BP 151/83; TEMP 99
== END 2020-11-21 13:38 | disposition home or self-care (01) | DRG 418 ==
LOC: ERS 23:30 → SJJU 11-18 02:32
PROVIDERS: ADMIT Internal Medicine; ATTEND Internal Medicine
PROC: 0FT44ZZ Resection of Gallbladder, Percutaneous Endoscopic Approach (ICD-10-PCS; principal; 2020-11-20)
PROC: BF131ZZ Fluoroscopy of Gallbladder and Bile Ducts using Low Osmolar Contrast (ICD-10-PCS; 2020-11-20)
DX: K85.10 Biliary acute pancreatitis without necrosis or infection (principal); K82.1 Hydrops of gallbladder; I10 Essential (primary) hypertension; Z20.822 Contact with and (suspected) exposure to COVID-19; K21.9 Gastro-esophageal reflux disease without esophagitis; D64.9 Anemia, unspecified; K44.9 Diaphragmatic hernia without obstruction or gangrene; K81.1 Chronic cholecystitis; Z90.710 Acquired absence of both cervix and uterus; Z88.2 Allergy status to sulfonamides; Z88.8 Allergy status to other drugs, medicaments and biological substances; Z79.899 Other long term (current) drug therapy; Z87.891 Personal history of nicotine dependence
CPT/HCPCS: 36415; 36416; 47532; 74177; 76705; 80048; 80053; 80076; 82607; 82728; 82746; 83036; 83540; 83550; 83605; 83690; 84478; 85025; 87040; 87635; 88304; 93005; 96374; 96375; C9113; J0690; J1650; J2270; J2405; J2704; J2765; J3010; J3480; Q0162; Q9961; Q9967; S0020; U0003; U0005

== ENCOUNTER 2020-12-03 10:56 | Observation (INO) | payer MEDICARE, BC ==
[2020-12-03 11:29] LABS: #Basophils 0.2 thou/uL (0.0-0.2); #Eosinphils 0.1 thou/uL (0.0-0.7); #Lymphocytes 2.3 thou/uL (1.20-3.40); #Monocytes 0.9 thou/uL (0.11-0.59); #Neutrophils 4.9 thou/uL (1.40-6.50); %Basophils 1.8 % (0.0-1.0); %Eosinophils 1.5 % (0.0-10.0); %Lymphocytes 27.2 % (21.0-51.0); %Monocytes 10.5 % (0.0-10.0); %Neutrophils 58.9 % (42.0-75.0); Hemoglobin 13.1 g/dL (12.0-16.0); Mean Corpuscular HGB CONC 33.4 g/dL (32.0-36.0); Mean Corpuscular Hemoglobin 31.9 pg (27.0-31.0); Mean Corpuscular Volume 95.4 fL (78.0-98.0); Mean Platelet Volume 7.1 fL (7.4-10.4); Platelet Count 465 thou/uL (130-400); RBC Distribution Width 12.6 % (11.5-14.5); Red Blood Cell (RBC) Count 4.12 mill/uL (4.20-5.40); White Blood Cell (WBC) Count 8.4 thou/uL (4.8-10.8)
[2020-12-03 12:00] LABS: ALT (SGPT) 19 U/L (8-55); AST (SGOT) 20 U/L (5-34); Albumin 4.3 g/dL (3.4-4.8); Alkaline Phosphatase 113 U/L (40-110); Anion Gap 15 mmol/L (10-20); BUN (Urea Nitrogen) 16 mg/dL (9.8-20.1); Bilirubin, Total 0.6 mg/dL (0.2-1.2); Calc. Creatinine Clearance 0 mL/min (70-130); Calcium 10.8 mg/dL (7.8-10.44); Carbon Dioxide 26 mmol/L (23-31); Chloride 102 mmol/L (98-107); Globulin 3.7 g/dL (2.4-3.5); Glucose 104 mg/dL (83-110); Lipase 74 U/L (8-78); Potassium 5.2 mmol/L (3.5-5.1); Sodium 138 mmol/L (136-145)
[2020-12-03] MEDS ORDERED: Iopamidol-370 76% 500 ML 1 ML ONE (12:11)
[2020-12-03] MEDS ORDERED: Morphine 4 MG/ML VIAL ONE (12:41)
[2020-12-03] MEDS ORDERED: Ondansetron PF 4 MG/2 ML Vial ONE (12:41)
[2020-12-03] MEDS ORDERED: HYDROcodone/Acetaminophen 5/325 mg Tablet PO PRN (15:24)
[2020-12-03] MEDS ORDERED: Ondansetron ODT 4 MG TAB PO PRN (15:24)
[2020-12-03] MEDS ORDERED: hydrALAZINE 25 MG TAB PO PRN (16:27)
[2020-12-03 16:35] LABS: Bacteria/HPF None Seen HPF (None Seen); Bilirubin Negative (Negative); Blood, Urine Negative (Negative); Clarity Clear (Clear); Glucose, Urine (Dipstick) Normal (Negative); Ketone, Urine Negative (Negative); Leukocyte 25 Leu/uL (Negative); Nitrite Negative (Negative); Protein, Urine (Dipstick) Negative (Neg-Trace); RBC/HPF 0-3 HPF (0-3); Urobilinogen Normal mg/dL (Less than 2)
[2020-12-03 16:46] LABS: Specific Gravity, Urine 1.048 (1.002-1.036)
[2020-12-03] MEDS: Acetaminophen 325 MG TAB PO PRN (17:49)
[2020-12-03 19:36] VITALS: BMI 20.4
[2020-12-03] MEDS ORDERED: Morphine 2 MG/ML VIAL SLOW IVP PRN (19:45)
[2020-12-03] MEDS ORDERED: Famotidine/PF 20 mg/2ml Vial SLOW IVP SCH (21:00)
[2020-12-03] MEDS: Sodium Chloride 0.9% 1,000 ML IV SCH (21:01)
[2020-12-04 02:23] LABS: SARS-CoV-2 PCR by NAA Not Detected (NotDetected)
[2020-12-04] MEDS: Ondansetron PF 4 MG/2 ML Vial IVP PRN ×2 (05:51→13:14)
[2020-12-04 07:06] LABS: ALT (SGPT) 11 U/L (8-55); AST (SGOT) 16 U/L (5-34); Alkaline Phosphatase 77 U/L (40-110); Anion Gap 9 mmol/L (10-20); BUN (Urea Nitrogen) 13 mg/dL (9.8-20.1); Bilirubin, Total 0.4 mg/dL (0.2-1.2); Calc. Creatinine Clearance 47 mL/min (70-130); Calcium 7.9 mg/dL (7.8-10.44); Carbon Dioxide 20 mmol/L (23-31); Chloride 108 mmol/L (98-107); Globulin 2.5 g/dL (2.4-3.5); Glucose 84 mg/dL (83-110); Lipase 30 U/L (8-78); Potassium 4.1 mmol/L (3.5-5.1); Protein, Total 5.5 g/dL (5.8-8.1); Sodium 133 mmol/L (136-145)
[2020-12-04 07:30] LABS: #Basophils 0.1 thou/uL (0.0-0.2); #Eosinphils 0.2 thou/uL (0.0-0.7); #Lymphocytes 1.3 thou/uL (1.20-3.40); #Monocytes 0.6 thou/uL (0.11-0.59); #Neutrophils 2.2 thou/uL (1.40-6.50); %Basophils 1.5 % (0.0-1.0); %Eosinophils 5.3 % (0.0-10.0); %Lymphocytes 29.4 % (21.0-51.0); %Monocytes 13.9 % (0.0-10.0); %Neutrophils 49.9 % (42.0-75.0); Hemoglobin 10.1 g/dL (12.0-16.0); Mean Corpuscular Hemoglobin 32.5 pg (27.0-31.0); Mean Corpuscular Volume 95.4 fL (78.0-98.0); Platelet Count 293 thou/uL (130-400); RBC Distribution Width 12.5 % (11.5-14.5); White Blood Cell (WBC) Count 4.4 thou/uL (4.8-10.8)
[2020-12-04] MEDS: Enoxaparin Sodium 40 MG/0.4 ML SYRINGE SC SCH (08:08)
[2020-12-04] MEDS: Sodium Chloride 0.9% 1,000 ML IV SCH ×2 (09:51→23:20)
[2020-12-04] MEDS: Pantoprazole 40 MG VIAL IVP SCH (09:56)
[2020-12-04] MEDS ORDERED: Lidocaine 1% PF 5 ML VIAL ONE (11:52)
[2020-12-04] MEDS ORDERED: PROPOFOL 200 MG/20 ML VIAL ONE (11:52)
[2020-12-04] MEDS ORDERED: Ondansetron HCl/PF 4 MG/2 ML Vial IVP PRN (12:16)
[2020-12-04] MEDS ORDERED: Magnevist 469MG/ML 20 ML VIAL ONE (12:24)
[2020-12-04] MEDS: Acetaminophen 325 MG TAB PO PRN (13:12)
[2020-12-04] MEDS ORDERED: Calcium Carbonate 500 MG ChewTAB PO PRN (13:44)
[2020-12-04] MEDS: Famotidine 20 MG TAB PO SCH (20:47)
[2020-12-05] MEDS: Pantoprazole 40 MG VIAL IVP SCH (08:32)
[2020-12-05] MEDS: Enoxaparin Sodium 40 MG/0.4 ML SYRINGE SC SCH (08:32)
[2020-12-05] MEDS: Famotidine 20 MG TAB PO SCH (08:35)
[2020-12-05 08:49] VITALS: BP 143/71; TEMP 98
[2020-12-05] MEDS: Sodium Chloride 0.9% 1,000 ML IV SCH (13:00)
== END 2020-12-05 14:20 | disposition home or self-care (01) ==
LOC: ERS 10:56 → ONC 15:03
PROVIDERS: ADMIT Internal Medicine; ATTEND Internal Medicine
PROC: 0DB68ZX Excision of Stomach, Via Natural or Artificial Opening Endoscopic, Diagnostic (ICD-10-PCS; principal; 2020-12-04)
DX: K31.7 Polyp of stomach and duodenum (principal); K21.01 Gastro-esophageal reflux disease with esophagitis, with bleeding; K44.9 Diaphragmatic hernia without obstruction or gangrene; K57.30 Diverticulosis of large intestine without perforation or abscess without bleeding; I10 Essential (primary) hypertension; K85.10 Biliary acute pancreatitis without necrosis or infection; D53.9 Nutritional anemia, unspecified; D18.09 Hemangioma of other sites; Z79.818 Long term (current) use of other agents affecting estrogen receptors and estrogen levels; Z79.899 Other long term (current) drug therapy; Z88.2 Allergy status to sulfonamides; Z88.8 Allergy status to other drugs, medicaments and biological substances; Z20.822 Contact with and (suspected) exposure to COVID-19
CPT/HCPCS: 43239; 74177; 74183; 80053 ×2; 82787; 83690 ×2; 84484; 85025 ×2; 88305; 93005; 96374; 96375; 99285; G0378 ×4; U0003; U0005; 36415; 81015; 87635; A9579; J2270; J2405; J2704; Q9967

== ENCOUNTER 2020-12-10 10:00 | Inpatient (IN) | payer MEDICARE, BC ==
[2020-12-11 14:18] VITALS: BMI 20.7
[2020-12-15] MEDS ORDERED: Lidocaine 1% w/Epinephrine 1:100K 20 ML VIAL ONE (11:51)
[2020-12-15] MEDS ORDERED: Bupivacaine 0.25% HCL 30 ML VIAL ONE (11:51)
[2020-12-15] MEDS ORDERED: Acetaminophen 500 MG TAB ONE (12:16)
[2020-12-15] MEDS ORDERED: Fentanyl 100 MCG/2 ML VIAL ONE ×3 (12:16→16:58)
[2020-12-15] MEDS ORDERED: Ketorolac Tromethamine 30 MG/ML VIAL ONE (12:16)
[2020-12-15] MEDS ORDERED: Lidocaine 1% PF 5 ML VIAL ONE (13:03)
[2020-12-15] MEDS ORDERED: Dexamethasone 20 MG/5 ML VIAL ONE (13:03)
[2020-12-15] MEDS ORDERED: PROPOFOL 200 MG/20 ML VIAL ONE (13:03)
[2020-12-15] MEDS ORDERED: Rocuronium Bromide 10 MG/ML (10ML VIAL) ONE (13:03)
[2020-12-15] MEDS ORDERED: Glycopyrrolate 0.2 MG/ML 5 ML SYRINGE ONE (13:03)
[2020-12-15] MEDS ORDERED: Labetalol HCl 100 MG/20 ML VIAL ONE (13:03)
[2020-12-15] MEDS ORDERED: Ondansetron PF 4 MG/2 ML Vial ONE ×2 (13:03→15:55)
[2020-12-15] MEDS ORDERED: PHENYLEPHRINE-NS 100 MCG/ML 10 ML SYRINGE ONE (13:03)
[2020-12-15] MEDS ORDERED: Ondansetron HCl/PF 4 MG/2 ML Vial IVP PRN (15:08)
[2020-12-15] MEDS ORDERED: HYDROcodone/Acetaminophen 10/325 mg Tablet PO PRN (17:21)
[2020-12-15] MEDS ORDERED: hydrALAZINE 20 MG/ML VIAL SLOW IVP PRN (17:21)
[2020-12-15] MEDS ORDERED: Morphine 2 MG/ML VIAL SLOW IVP PRN (17:21)
[2020-12-15] MEDS ORDERED: Dextrose 50% Abboject 50 ML SYRINGE SLOW IVP PRN (17:21)
[2020-12-15] MEDS ORDERED: Dextrose 5% in Water 1,000 ML IV PRN (17:21)
[2020-12-15] MEDS ORDERED: Ondansetron PF 4 MG/2 ML Vial IVP SCH (19:30)
[2020-12-15] MEDS: Morphine 4 MG/ML VIAL SLOW IVP PRN ×2 (19:41→23:57)
[2020-12-15] MEDS ORDERED: Lisinopril 5 MG TAB PO SCH (21:00)
[2020-12-15] MEDS: D5 1/2 NS w/20 mEq KCL 1,000 ML IV SCH (21:27)
[2020-12-15] MEDS: Famotidine/PF 20 mg/2ml Vial SLOW IVP SCH (21:27)
[2020-12-15] MEDS: Metoclopramide HCl 10 MG/2 ML VIAL IVP PRN (23:36)
[2020-12-16] MEDS: Morphine 4 MG/ML VIAL SLOW IVP PRN ×2 (03:24→06:38)
[2020-12-16] MEDS: Ondansetron PF 4 MG/2 ML Vial IVP PRN ×2 (03:24→10:59)
[2020-12-16 06:08] LABS: #Lymphocytes 1.2 thou/uL (1.20-3.40); #Monocytes 0.8 thou/uL (0.11-0.59); %Basophils 0.1 % (0.0-1.0); %Eosinophils 0.1 % (0.0-10.0); %Lymphocytes 14.7 % (21.0-51.0); %Monocytes 9.9 % (0.0-10.0); %Neutrophils 75.2 % (42.0-75.0); Hemoglobin 9.7 g/dL (12.0-16.0); Mean Corpuscular HGB CONC 33.1 g/dL (32.0-36.0); Mean Corpuscular Hemoglobin 31.7 pg (27.0-31.0); Mean Platelet Volume 7.9 fL (7.4-10.4); Platelet Count 217 thou/uL (130-400); RBC Distribution Width 12.7 % (11.5-14.5); Red Blood Cell (RBC) Count 3.04 mill/uL (4.20-5.40); White Blood Cell (WBC) Count 7.9 thou/uL (4.8-10.8)
[2020-12-16 06:27] LABS: ALT (SGPT) 12 U/L (8-55); AST (SGOT) 25 U/L (5-34); Albumin 3.2 g/dL (3.4-4.8); Alkaline Phosphatase 68 U/L (40-110); Anion Gap 14 mmol/L (10-20); BUN (Urea Nitrogen) 14 mg/dL (9.8-20.1); Bilirubin, Total 0.4 mg/dL (0.2-1.2); Calc. Creatinine Clearance 48 mL/min (70-130); Calcium 8.3 mg/dL (7.8-10.44); Carbon Dioxide 21 mmol/L (23-31); Chloride 103 mmol/L (98-107); Globulin 2.5 g/dL (2.4-3.5); Glucose 151 mg/dL (83-110); Potassium 4.9 mmol/L (3.5-5.1); Protein, Total 5.7 g/dL (5.8-8.1); Sodium 133 mmol/L (136-145)
[2020-12-16] MEDS: D5 1/2 NS w/20 mEq KCL 1,000 ML IV SCH (06:35)
[2020-12-16] MEDS: Famotidine/PF 20 mg/2ml Vial SLOW IVP SCH (08:02)
[2020-12-16] MEDS: Metoclopramide HCl 10 MG/2 ML VIAL IVP PRN (08:09)
[2020-12-16] MEDS ORDERED: Acetaminophen 500 MG TAB PO PRN (11:41)
[2020-12-16] MEDS ORDERED: D5 1/2 NS w/20 mEq KCL 1,000 ML IV SCH (11:45)
[2020-12-16 16:08] VITALS: BP 149/77; TEMP 97.7
== END 2020-12-16 17:53 | disposition home or self-care (01) | DRG 328 ==
LOC: EDSTATUS 12-15 10:00 → SURG A 12-15 11:35 → SJJU 12-15 17:01
PROVIDERS: ADMIT Specialist; ATTEND Specialist
PROC: 0DV44ZZ Restriction of Esophagogastric Junction, Percutaneous Endoscopic Approach (ICD-10-PCS; principal; 2020-12-15)
PROC: 0BQT4ZZ Repair Diaphragm, Percutaneous Endoscopic Approach (ICD-10-PCS; 2020-12-15)
DX: K44.9 Diaphragmatic hernia without obstruction or gangrene (principal); I10 Essential (primary) hypertension; K21.9 Gastro-esophageal reflux disease without esophagitis; Z90.49 Acquired absence of other specified parts of digestive tract; Z88.2 Allergy status to sulfonamides; Z90.710 Acquired absence of both cervix and uterus
CPT/HCPCS: 36415; 80053; 85025; J0690; J1100; J1885; J2270; J2405; J2704; J2765; J3010; J3480; S0020; S0028

== ENCOUNTER 2020-12-10 10:56 | Outpatient (CLI) | payer MEDICARE, BC ==
[2020-12-10 17:57] LABS: SARS-CoV-2 PCR by NAA Not Detected (NotDetected)
== END 2020-12-10 10:57 | disposition home or self-care (01) ==
LOC: LABBT 10:56
PROVIDERS: ATTEND Specialist
DX: Z01.818 Encounter for other preprocedural examination (principal); K44.9 Diaphragmatic hernia without obstruction or gangrene; Z20.822 Contact with and (suspected) exposure to COVID-19
CPT/HCPCS: 71046; 93005; U0003; U0005; 87635; 93010

== ENCOUNTER 2021-01-14 10:03 | Outpatient (CLI) | payer MEDICARE, BC ==
[2021-01-14 20:35] LABS: SARS-CoV-2 PCR by NAA Not Detected (NotDetected)
== END 2021-01-14 10:04 | disposition home or self-care (01) ==
LOC: LABBT 10:03
PROVIDERS: ATTEND Specialist
DX: Z01.812 Encounter for preprocedural laboratory examination (principal); R13.10 Dysphagia, unspecified; Z20.822 Contact with and (suspected) exposure to COVID-19
CPT/HCPCS: U0003; U0005; 87635

== ENCOUNTER 2021-01-19 09:26 | Outpatient (CLI) | payer MEDICARE, BC | END 2021-01-19 09:27 | disposition home or self-care (01) | LOC: RAD 09:26 | PROVIDERS: ATTEND Specialist | DX: R13.10 Dysphagia, unspecified (principal); Z98.890 Other specified postprocedural states | CPT/HCPCS: 74240 ==

== ENCOUNTER 2021-02-13 09:50 | Outpatient (CLI) | payer MEDICARE, BC | END 2021-02-13 09:51 | disposition home or self-care (01) | LOC: BICMAMMO 09:50 | PROVIDERS: ATTEND Specialist | DX: N63.12 Unspecified lump in the right breast, upper inner quadrant (principal) | CPT/HCPCS: 76642; 77066; G0279 ==

== ENCOUNTER 2022-03-30 09:16 | Outpatient (CLI) | payer MEDICARE, BC ==
[2022-03-30] MEDS ORDERED: Magnevist 469MG/ML 20 ML VIAL ONE (11:57)
== END 2022-03-30 09:17 | disposition home or self-care (01) ==
LOC: MRI 09:16
PROVIDERS: ATTEND Physician Assistant Medical
DX: K86.2 Cyst of pancreas (principal)
CPT/HCPCS: 74183; 82565; A9579

== ENCOUNTER 2022-07-01 15:43 | Outpatient (CLI) | payer MEDICARE, BC | END 2022-07-01 15:44 | disposition home or self-care (01) | LOC: BICRAD 15:43 | PROVIDERS: ATTEND Internal Medicine Gastroenterology | DX: K86.2 Cyst of pancreas (principal); R19.7 Diarrhea, unspecified; R63.4 Abnormal weight loss; R68.81 Early satiety | CPT/HCPCS: 71046 ==

== ENCOUNTER 2022-08-28 15:57 | Emergency (ER) | payer MEDICARE, BC ==
[2022-08-28 17:00] LABS: #Basophils 0.1 thou/uL (0.0-0.2); #Eosinphils 0.1 thou/uL (0.0-0.7); #Lymphocytes 1.6 thou/uL (1.20-3.40); #Monocytes 0.7 thou/uL (0.11-0.59); #Neutrophils 5.4 thou/uL (1.40-6.50); %Eosinophils 1.1 % (0.0-10.0); %Lymphocytes 20.9 % (21.0-51.0); %Monocytes 8.4 % (0.0-10.0); %Neutrophils 68.7 % (42.0-75.0); Hemoglobin 12.4 g/dL (12.0-16.0); Mean Corpuscular Hemoglobin 33.2 pg (27.0-31.0); Mean Platelet Volume 7.7 fL (7.4-10.4); Platelet Count 255 10x3/uL (130-400); Red Blood Cell (RBC) Count 3.75 mill/uL (4.20-5.40); White Blood Cell (WBC) Count 7.8 10x3/uL (4.8-10.8)
[2022-08-28 17:21] LABS: ALT (SGPT) 10 U/L (8-55); AST (SGOT) 17 U/L (5-34); Albumin 4.2 g/dL (3.4-4.8); Alkaline Phosphatase 89 U/L (40-110); Anion Gap 15 mmol/L (10-20); BUN (Urea Nitrogen) 20 mg/dL (9.8-20.1); Bilirubin, Total 0.5 mg/dL (0.2-1.2); Calc. Creatinine Clearance 0 mL/min (70-130); Calcium 9.5 mg/dL (7.8-10.44); Carbon Dioxide 23 mmol/L (23-31); Chloride 102 mmol/L (98-107); Estimated GFR 54; Globulin 2.8 g/dL (2.4-3.5); Glucose 117 mg/dL (83-110); Lipase 25 U/L (8-78); Potassium 4.1 mmol/L (3.5-5.1); Sodium 136 mmol/L (136-145)
== END 2022-08-28 18:24 | disposition home or self-care (01) ==
LOC: ERS 15:57
DX: R19.7 Diarrhea, unspecified (principal); I10 Essential (primary) hypertension; Z79.899 Other long term (current) drug therapy
CPT/HCPCS: 36415; 71045; 80053; 83690; 84484; 85025; 93005; 94760

== ENCOUNTER 2024-10-25 12:34 | Outpatient (CLI) | payer MEDICARE | END 2024-10-25 12:35 | disposition home or self-care (01) | LOC: SCSMRI 12:34 | PROVIDERS: ATTEND Physician Assistant Medical | DX: K86.2 Cyst of pancreas (principal); R19.7 Diarrhea, unspecified | CPT/HCPCS: 74183; 76376 ==